=== PATIENT | female | born 1960 | race Caucasian/White ===

== ENCOUNTER → 2017-10-30 | Day surgery (SDC) | payer OTHER ==
[~2017-10-30] VITALS: Ht 157.5 cm; Wt 69.9 kg
--- NOTE | 2017-10-30 10:22 | Operative Report ---
Operative/Inv Procedure Report Surgery Date: 10/30/17 Name of Procedure: left ESWL Pre-Operative Diagnosis: left kidney stone 1cm Post-Operative Diagnosis: same Estimated Blood Loss: scant Surgeon/Meat Counter Worker: Aylin Prado MD Anesthesia: local monitored anesthesi Complications: none Condition: stable Operative Indication: left renal stone causing gross hematuria Operative/Procedure Note Note: 57yo female with a no hx of kidney stones but presented for evaluation of gross hematuria for 5days. CT scan revealed a left side with a 10mm sized stone with 480HU. She was given the risks, benefits and alternatives of ESWL and all questions were answered. Consent was signed in the holding area and she was marked on the left side. Patient was taken to the OR and placed on the operating room table in the supine position. Time out was performed. IV antibiotics were given. IV sedation was started once she was optimally positioned and the stone was visible by US. The ESWL was started with US guidance. A total of 2500 shocks were given: 250 shocks at power of 1-17, 250 shocks at power of 18 and then 2000 shocks at power of 18-19. Patient tolerated the procedure well. The stone was visibly changed at the end of the ESWL treatment. She was transferred to the recovery room in stable condition. Findings: left renal stone visibly changed after ESWL Discharge Disposition: Same Day Admissions
== END ==
LOC: STS 04:46
DX: N20.0 Calculus of kidney (principal); R31.0 Gross hematuria; N95.2 Postmenopausal atrophic vaginitis; I10 Essential (primary) hypertension; E03.9 Hypothyroidism, unspecified; Z87.891 Personal history of nicotine dependence; E11.9 Type 2 diabetes mellitus without complications; Z79.84 Long term (current) use of oral hypoglycemic drugs
CPT/HCPCS: J0690; J2250